=== PATIENT | female | born 1995 | race Caucasian/White ===

== ENCOUNTER 2019-09-11 17:16 | Emergency (ER) | payer OTHER ==
[~2019-09-11] VITALS: Ht 172.7 cm; Wt 56.7 kg
[2019-09-11] MEDS ORDERED: TETRACAINE HCL 0.5% OPHT DROP 2 ML BOTTLE OP ONE (17:30)
[2019-09-11] MEDS ORDERED: FLUORESCEIN SODIUM 1 MG STRIP OP ONE (17:30)
[2019-09-11] MEDS ORDERED: IV NORMAL SALINE 1000 ML BAG IV ONE (17:30)
[2019-09-11] MEDS ORDERED: FLUORESCEIN SODIUM 1 MG STRIP ONE (17:36)
[2019-09-11] MEDS ORDERED: TETRACAINE HCL 0.5% OPHT DROP 2 ML BOTTLE ONE (17:36)
--- NOTE | 2019-09-11 17:45 | NUR ---
HENRY LE FROM [facility] OFFICE FOR SYCOPAL EPISODE DURING EYE PROCEDURE. PATIENT IS NOW AWAKE, ALERT, ORIENTED X4. C/O PAIN AND IRRITATION IN HER EYE. MOTHER AT BEDSIDE. LABS DRAWN, EKG DONE. AWAITING TEST RESULTS.
[2019-09-11 17:51] LABS: BASOPHILS % (AUTO) 0.4 % (0.0-2.0); EOSINOPHILS % (AUTO) 0.5 % (0.0-7.0); HEMATOCRIT 38.9 % (31.2-41.9); HEMOGLOBIN 13.2 g/dL (10.9-14.3); LYMPHOCYTES % (AUTO) 28.2 % (20.5-51.5); MEAN CORPUSCULAR HEMOGLOBIN 31.3 uug (24.7-32.8); MEAN CORPUSCULAR HGB CONC 34 g/dL (32.3-35.6); MEAN CORPUSCULAR VOLUME 92.3 fL (75.5-95.3); MONOCYTES # (AUTO) 0.4 K/uL (2.0-10.0); NEUTROPHILS # (AUTO) 4.6 K/uL (1.8-8.9); NEUTROPHILS % (AUTO) 65.9 % (38.5-71.5); PLATELET COUNT (AUTO) 221 K/uL (179-408); RED BLOOD CELL COUNT(AUTO) 4.22 MIL/uL (3.63-4.92)
[2019-09-11 17:54] LABS: POTASSIUM 3.7 mmol/L (3.5-5.1)
[2019-09-11] MEDS ORDERED: CIPROFLOXACIN 0.3% OPHT DROP 2.5 ML BOTTLE OP ONE (18:15)
[2019-09-11] MEDS ORDERED: CIPROFLOXACIN 0.3% OPHT DROP 2.5 ML BOTTLE ONE (18:21)
--- NOTE | 2019-09-11 18:33 | NUR ---
IV removed. Catheter intact and site benign. Pressure and 4x4 gauze applied to site. No bleeding noted.
--- NOTE | 2019-09-11 18:34 | NUR ---
DC AND FOLLOW UP ISNTRUCTIONS GIVEN AND EXPLAINED TO PATIENT AND MOTHER WHO STATES SHE UNDERSTANDS ALL INSTRUCTIONS.
[2019-09-11 18:40] VITALS: BP 108/63
== END 2019-09-11 18:40 | disposition home or self-care (01) ==
LOC: ER 17:16
DX: R55 Syncope and collapse (principal); R00.1 Bradycardia, unspecified; H18.821 Corneal disorder due to contact lens, right eye
CPT/HCPCS: 36415; 70030-TC; 71045; 85025; 93005; A4663; J7030